=== PATIENT | male | born 1950 | race Caucasian/White ===

== ENCOUNTER 2017-12-05 10:26 | Emergency (ER) | payer MEDICARE, OTHER ==
[~2017-12-05] VITALS: Ht 177.8 cm; Wt 99.3 kg
[~2017-12-05 10:26] MED LIST: ACET500 PO; ALPR.5 PO; ASPI325EC PO; CYCL10 PO; DULO60 PO; ESCI10 PO; GABA300 PO; HYDACE5325 PO; LEVSOD125; LEVSOD50 PO; LOSA25 PO; MELO7.5 PO; MUPI1NAS; NAPR500 PO; OXYC10TA19; Percocet 5-3251 EACH PO; TRAM50 PO
[2017-12-05] MEDS ORDERED: Prednisone20 MG PO (11:25)
[2017-12-05] MEDS ORDERED: Norco 10-325 T1 EACH PO (11:25)
== END 2017-12-05 11:34 | disposition home or self-care (01) ==
LOC: ER 10:26
DX: S16.1XXA Strain of muscle, fascia and tendon at neck level, initial encounter (principal); M54.12 Radiculopathy, cervical region; I10 Essential (primary) hypertension; Z88.5 Allergy status to narcotic agent; Z79.899 Other long term (current) drug therapy; X50.9XXA Other and unspecified overexertion or strenuous movements or postures, initial encounter
CPT/HCPCS: 99283

== ENCOUNTER → 2018-12-25 | Outpatient (CLI) | payer MEDICARE, OTHER ==
[~2018-12-25] MED LIST changes: +Norco 10-325 T1 EACH PO; +Prednisone20 MG PO
== END | disposition home or self-care (01) ==
LOC: LAB EV 13:53 → LAB SHORT 13:53
DX: J02.9 Acute pharyngitis, unspecified (principal)
CPT/HCPCS: 87070

== ENCOUNTER 2019-03-30 11:18 | Day surgery (SDC) | payer MEDICARE, OTHER ==
[~2019-03-30] VITALS: Ht 175.3 cm; Wt 104.1 kg
[~2019-03-30 11:18] MED LIST changes: +Buspirone HCl7.5 MG PO; +ESCI20 PO; +LEVSOD25 PO; +LOSARTAN-HCTZ1 EACH PO; +TYLECOD3 PO
--- NOTE | 2019-03-30 12:40 | NUR ---
INTO [facility] ADMISSION STARTED. Ambulatory in Day Surgery. History, Chart, Medications and Allergies reviewed before start of procedure.Lungs clear T/O to Auscultation. Patient confirms NPO status and agrees with scheduled surgery.
--- NOTE | 2019-03-30 13:35 | NUR ---
UP TO BATHROOM TO VOID.
--- NOTE | 2019-03-30 18:05 | NUR ---
PT HERE FROM HAVING PROCEDURE. PT A/O. PT YOCHA DEHE. PT REPORTS PAIN TOLERABLE. PT DENIES N/V, N/T, SOB. PPX4. WIGGLES TOES. TEDS, PAS, AND ICE IN PLACE. FAMILY IN ROOM. VSS.
[2019-03-30] MEDS ORDERED: GABA300 PO (18:38)
[2019-03-31 04:27] LABS: BASOPHILS ABSOLUTE AUTO 0.02 K/mm3 (0.00-0.23); BASOPHILS PERCENT AUTO 0 % (0-2); EOSINOPHILS PERCENT AUTO 0 % (0-6); Hematocrit 39.3 % (37.0-53.0); Hemoglobin 13.4 g/dL (13.5-17.5); IMMATURE GRAN ABSOLUTE AUTO 0.12 K/mm3 (0.00-0.10); IMMATURE GRAN PERCENT AUTO 1 % (0-1); LYMPHOCYTES ABSOLUTE AUTO 0.66 K/mm3 (0.84-5.20); LYMPHOCYTES PERCENT AUTO 5 % (21-46); MONOCYTES ABSOLUTE AUTO 0.55 K/mm3 (0.16-1.47); MONOCYTES PERCENT AUTO 4 % (4-13); Mean Corpuscular HGB 30.5 pg (26.0-34.0); Mean Corpuscular HGB Conc 34.1 g/dL (31.5-36.5); Mean Corpuscular Volume 90 fL (80-100); Mean Platelet Volume 9.5 fL (9.1-12.4); NEUTROPHILS ABSOLUTE AUTO 12.17 K/mm3 (1.96-9.15); NEUTROPHILS PERCENT AUTO 90 % (41-73); Platelet Count 217 K/mm3 (150-400); RDW Coefficient Variation 13.1 % (11.7-14.2); Red Blood Cell Count 4.39 M/mm3 (4.30-5.90); White Blood Cell Count 13.52 K/mm3 (4.00-11.30)
[2019-03-31 04:47] LABS: Anion Gap 11 mmol/L (6-16); Blood Urea Nitrogen 21 mg/dL (8-24); Bun/Creatinine Ratio 20.8 (12.0-20.0); CO2, Blood 24 mmol/L (21-32); Calcium, Blood 8.3 mg/dL (8.5-10.1); Chloride, Blood 102 mmol/L (98-108); Creatinine, Blood 1.01 mg/dL (0.60-1.20); Glomerular Filtration Rate >60 (60-); Glucose, Blood 138 mg/dL (70-99); Potassium, Blood 3.9 mmol/L (3.5-5.5); Sodium, Blood 137 mmol/L (136-145)
--- NOTE | 2019-03-31 05:19 | NUR ---
SHIFT SUMMARY: PT POD#1 FOR L KNEE REVISION. A&O X4. VS WNL. ISAEL WRAP CDI WITH ICE PACK IN PLACE. PAIN MANAGED WITH 2 OXY PER EMAR AND SCHED TYLENOL + TORADOL. PT OUT OF BED WITH SBA AND FWW. VOIDING IN URINAL. ADEQUATE URINE OUTPUT. SALINE LOCKED EXCEPT FOR IV ABX. PT RYAN REG DIET. DENIES N/V.
[2019-03-31] MEDS ORDERED: Percocet 5-3251 EACH PO (08:48)
[2019-03-31] MEDS ORDERED: Aspirin EC81 MG PO (08:49)
--- NOTE | 2019-03-31 10:05 | NUR ---
D/C INSTRUCTIONS PROVIDED, PT STATES UNDERSTANDING. D/C RX & 2 EXTRA AQUACEL DRSG'S GIVEN TO THE PT AT THIS TIME.
== END 2019-03-31 17:30 | disposition home or self-care (01) ==
LOC: ORSCMMR 11:18 → PRE IP 12:45 → EDSTATUS 12:45 → SURS 18:05 → ORSCMMR 03-31 17:30
PROVIDERS: Orthopaedic Surgery
PROC: 0SRU0J9 Replacement of Left Knee Joint, Femoral Surface with Synthetic Substitute, Cemented, Open Approach (ICD-10-PCS; principal; 2019-03-30 12:45)
PROC: 0SPU0JZ Removal of Synthetic Substitute from Left Knee Joint, Femoral Surface, Open Approach (ICD-10-PCS; principal; 2019-03-30 12:45)
DX: T84.84XA Pain due to internal orthopedic prosthetic devices, implants and grafts, initial encounter (principal); Z96.659 Presence of unspecified artificial knee joint; Z01.818 Encounter for other preprocedural examination; V80.010A Animal-rider injured by fall from or being thrown from horse in noncollision accident, initial encounter; I10 Essential (primary) hypertension; G47.33 Obstructive sleep apnea (adult) (pediatric); E03.9 Hypothyroidism, unspecified; Z79.899 Other long term (current) drug therapy
CPT/HCPCS: 36415; 73560-LT; 80048; 85025; 86850; 86900; 86901; 97110; 97161; 97530; C1713; C1776; J0171; J0690; J0735; J1100; J1885; J2250; J2405; J2704; J2795; J3010; J7120; Q0163

== ENCOUNTER 2023-03-25 11:29 | Day surgery (SDC) | payer MEDICARE ==
[~2023-03-25] VITALS: Ht 177.8 cm; Wt 103.4 kg
[~2023-03-25 11:29] MED LIST changes: +Aspirin EC81 MG PO
[2023-03-25] MEDS ORDERED: DESV50 (11:58)
[2023-03-25] MEDS ORDERED: Cyclobenzaprine5 MG (11:58)
[2023-03-25] MEDS ORDERED: TAMS.4ER (11:59)
[2023-03-25] MEDS ORDERED: ZOCOR20 MG (11:59)
[2023-03-25] MEDS ORDERED: AMLO5 (12:00)
[2023-03-25 14:32] VITALS: BP 169/55
== END 2023-03-25 14:20 | disposition home or self-care (01) ==
LOC: ORSCSDS 11:29
PROVIDERS: Surgery
PROC: 0DJD8ZZ Inspection of Lower Intestinal Tract, Via Natural or Artificial Opening Endoscopic (ICD-10-PCS; principal; 2023-03-25 13:00)
DX: Z12.11 Encounter for screening for malignant neoplasm of colon (principal); R19.5 Other fecal abnormalities; K57.30 Diverticulosis of large intestine without perforation or abscess without bleeding; I10 Essential (primary) hypertension; E11.9 Type 2 diabetes mellitus without complications; E03.9 Hypothyroidism, unspecified; E78.5 Hyperlipidemia, unspecified; Z79.899 Other long term (current) drug therapy; Z79.84 Long term (current) use of oral hypoglycemic drugs
CPT/HCPCS: J2704; J7120

== ENCOUNTER 2023-04-13 17:26 | Inpatient (IN) | payer MEDICARE ==
[~2023-04-13] VITALS: Ht 177.8 cm; Wt 99.8 kg
[~2023-04-13 17:26] MED LIST changes: +AMLO5; +Cyclobenzaprine5 MG; +DESV50; +TAMS.4ER; +ZOCOR20 MG
[2023-04-13 18:10] LABS: BASOPHILS ABSOLUTE AUTO 0.11 K/mm3 (0.00-0.23); BASOPHILS PERCENT AUTO 1 % (0-2); EOSINOPHILS ABSOLUTE AUTO 0.06 K/mm3 (0.00-0.68); EOSINOPHILS PERCENT AUTO 0 % (0-6); Hematocrit 40.7 % (37.0-53.0); Hemoglobin 14.4 g/dL (13.5-17.5); IMMATURE GRAN ABSOLUTE AUTO 0.06 K/mm3 (0.00-0.10); IMMATURE GRAN PERCENT AUTO 0 % (0-1); LYMPHOCYTES ABSOLUTE AUTO 1.12 K/mm3 (0.84-5.20); LYMPHOCYTES PERCENT AUTO 8 % (21-46); MONOCYTES ABSOLUTE AUTO 0.91 K/mm3 (0.16-1.47); MONOCYTES PERCENT AUTO 7 % (4-13); Mean Corpuscular HGB 31.8 pg (26.0-34.0); Mean Corpuscular HGB Conc 35.4 g/dL (31.5-36.5); Mean Corpuscular Volume 90 fL (80-100); Mean Platelet Volume 9.4 fL (9.1-12.4); NEUTROPHILS ABSOLUTE AUTO 11.25 K/mm3 (1.96-9.15); NEUTROPHILS PERCENT AUTO 83 % (41-73); Platelet Count 273 K/mm3 (150-400); RDW Standard Deviation 42.7 fL (35.1-46.3); Red Blood Cell Count 4.53 M/mm3 (4.30-5.90); White Blood Cell Count 13.51 K/mm3 (4.00-11.30)
[2023-04-13 18:25] LABS: D-Dimer, Quantitative 0.63 mg/L FEU (0.00-0.52); International Normalized Ratio 1.01; Prothrombin Time Results 10.6 Sec (9.7-11.5)
[2023-04-13 18:29] LABS: Albumin, Blood 3.7 g/dL (3.4-5.0); Albumin/Globulin Ratio 1.1 (0.8-1.8); Bilirubin, Total 0.6 mg/dL (0.1-1.0); Bun/Creatinine Ratio 24.6 (12.0-20.0); Creatinine, Blood 0.89 mg/dL (0.60-1.20); Globulin, Blood 3.3 g/dL (2.2-4.0); Magnesium, Blood 1.9 mg/dL (1.6-2.4); Phosphorus, Blood 1.4 mg/dL (2.5-4.9); Potassium, Blood 3.7 mmol/L (3.5-5.5)
[2023-04-14] VITALS (24 sets, daily range): BP systolic 103–153; BP diastolic 50–97
[2023-04-14 04:17] LABS: BASOPHILS ABSOLUTE AUTO 0.04 K/mm3 (0.00-0.23); BASOPHILS PERCENT AUTO 0 % (0-2); EOSINOPHILS ABSOLUTE AUTO 0.01 K/mm3 (0.00-0.68); EOSINOPHILS PERCENT AUTO 0 % (0-6); Hematocrit 43.3 % (37.0-53.0); Hemoglobin 15.3 g/dL (13.5-17.5); IMMATURE GRAN ABSOLUTE AUTO 0.06 K/mm3 (0.00-0.10); IMMATURE GRAN PERCENT AUTO 0 % (0-1); LYMPHOCYTES PERCENT AUTO 4 % (21-46); MONOCYTES PERCENT AUTO 6 % (4-13); Mean Corpuscular HGB 32.1 pg (26.0-34.0); Mean Corpuscular HGB Conc 35.3 g/dL (31.5-36.5); Mean Corpuscular Volume 91 fL (80-100); Mean Platelet Volume 9.7 fL (9.1-12.4); NEUTROPHILS ABSOLUTE AUTO 12.71 K/mm3 (1.96-9.15); NEUTROPHILS PERCENT AUTO 90 % (41-73); Platelet Count 257 K/mm3 (150-400); RDW Coefficient Variation 13.1 % (11.7-14.2); RDW Standard Deviation 43.8 fL (35.1-46.3); Red Blood Cell Count 4.76 M/mm3 (4.30-5.90); White Blood Cell Count 14.12 K/mm3 (4.00-11.30)
[2023-04-14 05:02] LABS: Albumin, Blood 3.6 g/dL (3.4-5.0); Bilirubin, Total 0.6 mg/dL (0.1-1.0); Calcium, Blood 9.1 mg/dL (8.5-10.1); Creatinine, Blood 0.9 mg/dL (0.60-1.20); Globulin, Blood 3.7 g/dL (2.2-4.0); Potassium, Blood 3.6 mmol/L (3.5-5.5); Total Protein, Blood 7.3 g/dL (6.4-8.2)
--- NOTE | 2023-04-14 05:40 | NUR ---
PT ARRIVED TO [facility] @ 0315. ORIENTED X4, DENIES CP OR PRESSURE AT THIS TIME. VSS PER PT TREND, SLIGHTLY HYPERTENSIVE IN THE 150S SYSTOLIC. SOA W EXERTION. PT STATES CHEST PAIN STARTED WHEN HE WAS VOMITING PERFUSELY AND FELT SICK TO HIS STOMACH. STATES HE HAS HAD RECENT SICK FAMILY MEMBERS WITH A "STOMACH BUG". NOTIFIED DR. VALENTINE AND ORDER FOR RVP AND GI PANEL RECEIVED. AT BESIDE. ALL UPDATED ON PLAN OF CARE, FALL PRECAUTIONS AND ORIENTED TO UNIT. WILL PASS ON TO DAY RN
--- NOTE | 2023-04-14 14:18 | NUR ---
PATINET INTO SDS FROM PCU, CHANGED TO SURGICCAL FLOOR STATUS. History, Chart, Medications and Allergies reviewed before start of procedure.Patient confirms NPO status and agrees with scheduled surgery. Surgical site prepped with 2% Chlorhexidine cloth wipe.
--- NOTE | 2023-04-14 17:41 | NUR ---
3 ATTEMPTED IV SITES, TRINA RN R ARM X2 AND Savannah SORIANO RN X1.
--- NOTE | 2023-04-14 18:04 | NUR ---
PATIENT ARRIVED FROM PACU TODAY AT 1745. POD 0 LAP ANNMARIE PATIENT IS A&OX4 BUT IS SLIGHTLY QUINAULT. VS ARE WNL AND IS ON RA. PATIENT DENIES PAIN AT THIS TIME. ON HIS ABD HE HAS X3 LAP SITES WITH STERI STRIPS THAT ARE C/D/I. HIS ABD HAS A TAMAR DRAIN ON THE RLQ OF ABD WITH BULB COMPRESSED. ABD IS TENDER TO TOUCH. HE IS TOLERATING SMALL AMOUNTS OF CLEAR LIQUIDS AT THIS TIME. HE IS LAYING IN BED WITH CALL LIGHT IN REACH. IS AT BEDSIDE.
[2023-04-15 04:24] LABS: BASOPHILS ABSOLUTE AUTO 0.02 K/mm3 (0.00-0.23); BASOPHILS PERCENT AUTO 0 % (0-2); EOSINOPHILS PERCENT AUTO 0 % (0-6); Hematocrit 39.9 % (37.0-53.0); Hemoglobin 13.9 g/dL (13.5-17.5); IMMATURE GRAN ABSOLUTE AUTO 0.14 K/mm3 (0.00-0.10); IMMATURE GRAN PERCENT AUTO 1 % (0-1); LYMPHOCYTES ABSOLUTE AUTO 0.52 K/mm3 (0.84-5.20); LYMPHOCYTES PERCENT AUTO 3 % (21-46); MONOCYTES ABSOLUTE AUTO 1.03 K/mm3 (0.16-1.47); MONOCYTES PERCENT AUTO 5 % (4-13); Mean Corpuscular HGB Conc 34.8 g/dL (31.5-36.5); Mean Corpuscular Volume 92 fL (80-100); Mean Platelet Volume 9.4 fL (9.1-12.4); NEUTROPHILS ABSOLUTE AUTO 17.73 K/mm3 (1.96-9.15); NEUTROPHILS PERCENT AUTO 91 % (41-73); Platelet Count 240 K/mm3 (150-400); RDW Coefficient Variation 13.2 % (11.7-14.2); Red Blood Cell Count 4.34 M/mm3 (4.30-5.90); White Blood Cell Count 19.44 K/mm3 (4.00-11.30)
[2023-04-15 04:46] LABS: Albumin/Globulin Ratio 0.8 (0.8-1.8); Bilirubin, Total 0.6 mg/dL (0.1-1.0); Bun/Creatinine Ratio 19.3 (12.0-20.0); Calcium, Blood 8.9 mg/dL (8.5-10.1); Creatinine, Blood 0.98 mg/dL (0.60-1.20); Potassium, Blood 4.2 mmol/L (3.5-5.5)
[2023-04-15 04:54] VITALS: BP 155/65
--- NOTE | 2023-04-15 07:26 | NUR ---
SUMMARY PT DENIED NEED FOR PAIN MEDS THIS SHIFT. VODIING AND TOLERATING PO FLUIDS.
[2023-04-15 07:51] VITALS: BP 120/56
--- NOTE | 2023-04-15 11:06 | NUR ---
DR PORTILLO IN TO SEE PT.
[2023-04-15] MEDS ORDERED: BENADRYL25 MG PO (12:13)
[2023-04-15] MEDS ORDERED: OXYC5 PO (12:14)
--- NOTE | 2023-04-15 15:02 | NUR ---
DISCHARGE EATING, DRINKING, VOIDING WELL. PASSING GAS. PAIN WELL CONTROLLED. PLEASANT & EXCITED FOR DC. SCRIPT SENT & ESCORTED OUT VIA WC.
== END 2023-04-15 15:01 | disposition home or self-care (01) | DRG 418 ==
LOC: ER 17:26 → ERHOLD 17:27 → PCU 17:27 → SURS 04-14 15:18
PROVIDERS: Emergency Medicine; Family Medicine; Surgery; ADMIT Internal Medicine
PROC: 0FT44ZZ Resection of Gallbladder, Percutaneous Endoscopic Approach (ICD-10-PCS; principal; 2023-04-14 14:30)
DX: K80.00 Calculus of gallbladder with acute cholecystitis without obstruction (principal); I25.110 Atherosclerotic heart disease of native coronary artery with unstable angina pectoris; F41.9 Anxiety disorder, unspecified; M19.90 Unspecified osteoarthritis, unspecified site; K82.A1 Gangrene of gallbladder in cholecystitis; N40.0 Benign prostatic hyperplasia without lower urinary tract symptoms; E11.9 Type 2 diabetes mellitus without complications; E78.5 Hyperlipidemia, unspecified; F32.A Depression, unspecified; I10 Essential (primary) hypertension; E03.9 Hypothyroidism, unspecified; E66.9 Obesity, unspecified; Z68.31 Body mass index [BMI] 31.0-31.9, adult; F10.90 Alcohol use, unspecified, uncomplicated; F43.10 Post-traumatic stress disorder, unspecified; E55.9 Vitamin D deficiency, unspecified; Z96.659 Presence of unspecified artificial knee joint; Z98.1 Arthrodesis status; Z90.89 Acquired absence of other organs; Z87.891 Personal history of nicotine dependence; Z86.19 Personal history of other infectious and parasitic diseases; Z79.82 Long term (current) use of aspirin; Z79.890 Hormone replacement therapy; Z88.5 Allergy status to narcotic agent; Z88.8 Allergy status to other drugs, medicaments and biological substances
CPT/HCPCS: 36415; 71045; 71260; 76705; 80053; 83690; 83735; 83880; 84100; 84484; 85025; 85379; 85610; 85730; 88304; 93005; 93010; 96374-59; 96375; 96375-59; 96376; 96376-59; 99285-25; A9270; G0378; J0690; J1100; J1170; J1650; J2270; J2371; J2405; J2704; J2765; J3010; J7120; Q9967

== ENCOUNTER 2023-05-10 11:10 | Emergency (ER) | payer MEDICARE ==
[~2023-05-10] VITALS: Ht 177.8 cm; Wt 99.8 kg
[~2023-05-10 11:10] MED LIST changes: +BENADRYL25 MG PO; +OXYC5 PO
[2023-05-10 12:05] LABS: BASOPHILS ABSOLUTE AUTO 0.08 K/mm3 (0.00-0.23); BASOPHILS PERCENT AUTO 1 % (0-2); EOSINOPHILS ABSOLUTE AUTO 0.54 K/mm3 (0.00-0.68); EOSINOPHILS PERCENT AUTO 7 % (0-6); Hematocrit 42.5 % (37.0-53.0); Hemoglobin 14.7 g/dL (13.5-17.5); IMMATURE GRAN ABSOLUTE AUTO 0.03 K/mm3 (0.00-0.10); IMMATURE GRAN PERCENT AUTO 0 % (0-1); LYMPHOCYTES ABSOLUTE AUTO 1.06 K/mm3 (0.84-5.20); LYMPHOCYTES PERCENT AUTO 15 % (21-46); MONOCYTES ABSOLUTE AUTO 0.82 K/mm3 (0.16-1.47); MONOCYTES PERCENT AUTO 11 % (4-13); Mean Corpuscular HGB 31.7 pg (26.0-34.0); Mean Corpuscular HGB Conc 34.6 g/dL (31.5-36.5); Mean Corpuscular Volume 92 fL (80-100); Mean Platelet Volume 9.6 fL (9.1-12.4); NEUTROPHILS ABSOLUTE AUTO 4.73 K/mm3 (1.96-9.15); NEUTROPHILS PERCENT AUTO 65 % (41-73); Platelet Count 250 K/mm3 (150-400); RDW Standard Deviation 43.5 fL (35.1-46.3); Red Blood Cell Count 4.64 M/mm3 (4.30-5.90); White Blood Cell Count 7.26 K/mm3 (4.00-11.30)
[2023-05-10 12:20] LABS: Albumin, Blood 3.7 g/dL (3.4-5.0); Bilirubin, Total 0.4 mg/dL (0.1-1.0); Bun/Creatinine Ratio 19.3 (12.0-20.0); Calcium, Blood 9.2 mg/dL (8.5-10.1); Creatinine, Blood 1.14 mg/dL (0.60-1.20); Globulin, Blood 3.6 g/dL (2.2-4.0); Potassium, Blood 4.2 mmol/L (3.5-5.5); Total Protein, Blood 7.3 g/dL (6.4-8.2)
[2023-05-10] MEDS ORDERED: PROBIOTIC1 EA14 PO (15:56)
[2023-05-10] MEDS ORDERED: IBUP800 PO (15:56)
[2023-05-10] MEDS ORDERED: Pepcid20 MG PO (15:56)
[2023-05-10] MEDS ORDERED: ONDA4ODT MM (15:56)
[2023-05-10 16:04] VITALS: BP 135/54
== END 2023-05-10 16:07 | disposition home or self-care (01) ==
LOC: ER 11:10
PROVIDERS: Physician Assistant
DX: G89.18 Other acute postprocedural pain (principal); I10 Essential (primary) hypertension; Z79.899 Other long term (current) drug therapy; Z79.82 Long term (current) use of aspirin
CPT/HCPCS: 80053; 83690; 85025; 96374; 99284-25; J1885

== ENCOUNTER 2025-03-14 17:23 | Observation (INO) | payer OTHER ==
[~2025-03-14] VITALS: Ht 172.7 cm; Wt 114.0 kg
[~2025-03-14 17:23] MED LIST changes: -AMLO5; +AMLO5 PO; -Cyclobenzaprine5 MG; +Cyclobenzaprine5 MG PO; +IBUP800 PO; +ONDA4ODT MM; +PROBIOTIC1 EA14 PO; +Pepcid20 MG PO; -TAMS.4ER; +TAMS.4ER PO; -ZOCOR20 MG; +ZOCOR20 MG PO
[2025-03-14 18:11] LABS: BASOPHILS ABSOLUTE AUTO 0.07 K/mm3 (0.00-0.23); BASOPHILS PERCENT AUTO 1 % (0-2); EOSINOPHILS ABSOLUTE AUTO 0.41 K/mm3 (0.00-0.68); EOSINOPHILS PERCENT AUTO 7 % (0-6); Hematocrit 40.8 % (37.0-53.0); Hemoglobin 14.2 g/dL (13.5-17.5); IMMATURE GRAN ABSOLUTE AUTO 0.03 K/mm3 (0.00-0.10); IMMATURE GRAN PERCENT AUTO 1 % (0-1); LYMPHOCYTES ABSOLUTE AUTO 0.98 K/mm3 (0.84-5.20); LYMPHOCYTES PERCENT AUTO 16 % (21-46); MONOCYTES ABSOLUTE AUTO 0.53 K/mm3 (0.16-1.47); MONOCYTES PERCENT AUTO 9 % (4-13); Mean Corpuscular HGB Conc 34.8 g/dL (31.5-36.5); Mean Corpuscular Volume 90 fL (80-100); NEUTROPHILS ABSOLUTE AUTO 4.09 K/mm3 (1.96-9.15); NEUTROPHILS PERCENT AUTO 67 % (41-73); NRBC ABSOLUTE 0.00 K/mm3 (0.00-0.02); NRBC Auto 0.0 /100 WBC (0.0-0.2); Platelet Count 271 K/mm3 (150-400); RDW Coefficient Variation 13.6 % (11.7-14.2); RDW Standard Deviation 45.3 fL (35.1-46.3)
[2025-03-14 18:23] LABS: Alanine Aminotransfer (ALT/SGP 27.0 U/L (12-78); Albumin, Blood 3.4 g/dL (3.4-5.0); Albumin/Globulin Ratio 0.9 (0.8-1.8); Anion Gap 6.0 mmol/L (3-11); Aspartate Aminotrans (AST/SGOT 26.0 U/L (12-37); Bilirubin, Total 0.4 mg/dL (0.1-1.0); Blood Urea Nitrogen 15.0 mg/dL (8-24); CO2, Blood 25.0 mmol/L (21-32); Calcium, Blood 9.3 mg/dL (8.5-10.1); Chloride, Blood 108.0 mmol/L (98-108); Creatinine, Blood 0.95 mg/dL (0.60-1.20); Globulin, Blood 3.8 g/dL (2.2-4.0); Glucose, Blood 118.0 mg/dL (70-99); Potassium, Blood 3.4 mmol/L (3.5-5.5); Sodium, Blood 136.0 mmol/L (136-145); Total Protein, Blood 7.2 g/dL (6.4-8.2)
[2025-03-14] MEDS ORDERED: Ondansetron HCl 2 MG / ML 2ML Vial IV ONE (18:30)
[2025-03-14] MEDS ORDERED: Morphine Sulfate 4 MG/1 ML Injection IV ONE (18:30)
[2025-03-14] MEDS ORDERED: Ondansetron HCl 2 MG / ML 2ML Vial IV PRN (19:45)
[2025-03-14] MEDS ORDERED: NS 1,000 ML IV SCH (19:45)
[2025-03-14] MEDS ORDERED: NS 1,000 ML IV ONE (20:36)
[2025-03-14 21:48] VITALS: BP 127/70
[2025-03-14] MEDS ORDERED: EUTHYROX25 MC1 PO (21:54)
[2025-03-14] MEDS ORDERED: NITROGLYCERIN0.4 M3 SL (21:56)
[2025-03-14] MEDS ORDERED: ISOSORBIDE MONO30 MG PO (21:56)
[2025-03-14] MEDS ORDERED: BUSPIRONE HCL10 M6 PO (21:57)
[2025-03-14] MEDS ORDERED: DESVENLAFAXINE50 M3 PO (21:59)
[2025-03-14] MEDS ORDERED: DESV50 PO (22:01)
[2025-03-14] MEDS ORDERED: Morphine Sulfate 4 MG/1 ML Injection IV PRN (22:35)
[2025-03-14 22:55] VITALS: BP 132/43
[2025-03-14] MEDS ORDERED: LOSA50 PO (23:14)
--- NOTE | 2025-03-14 23:33 | NUR ---
ARRIVAL TO PCU NOTE RECEIVED REPORT FROM DOCTOR OF AUDIOLOGY IVAN, PT SHORTLY ARRIVED TO PCU 15 AT 2140. TRANSFERRED FROM ER [facility] TO PCU BED VIA SBA. A/Ox4 AND COOPERATIVE WITH CARE. ANSWERS QUESTIONS APPROPRIATELY AND ABLE TO MAKE HIS NEEDS KNOWN. DENIES ANY UNILATERAL WEAKNESS OR N/T. TELE SHOWS SB 50'S WITH PT REPORTING MILD 4/10 CENTRAL CHEST PAIN WITHOUT RADIATTION. SBP STABLE AT THIS TIME. RESPIRATORY, MAINTAINS SPO2 >94% ON RA, ENDORSES SOME SOB WITH EXERTION. GI/, DENIES ANY ABD TENDERNESS WITH BS NOTED IN ALL QUADRANTS. DENIES ANY ISSUES VOIDING. SKIN C/D/I, WITH TRACE EDEMA NOTED IN BLE. 1xPIV IN LAC FLUSHES WELL. NS STARTED IN ER AND RESUMED ORDERED PER EMAR. DR. WANG NOTIFIED OF PT'S CP, ORDERS TO FOLLOW. SEE EMAR FOR DETAILS. BED IN LOWEST POSITION CALL LIGHT WITHIN REACH
[2025-03-14] MEDS ORDERED: ALBU90OI INH (23:44)
[2025-03-15] VITALS (7 sets, daily range): BP systolic 140–183; BP diastolic 54–94
[2025-03-15 05:27] LABS: BASOPHILS ABSOLUTE AUTO 0.09 K/mm3 (0.00-0.23); BASOPHILS PERCENT AUTO 2 % (0-2); EOSINOPHILS ABSOLUTE AUTO 0.50 K/mm3 (0.00-0.68); EOSINOPHILS PERCENT AUTO 8 % (0-6); Hematocrit 39.8 % (37.0-53.0); Hemoglobin 13.7 g/dL (13.5-17.5); IMMATURE GRAN ABSOLUTE AUTO 0.03 K/mm3 (0.00-0.10); IMMATURE GRAN PERCENT AUTO 1 % (0-1); LYMPHOCYTES ABSOLUTE AUTO 1.31 K/mm3 (0.84-5.20); LYMPHOCYTES PERCENT AUTO 22 % (21-46); MONOCYTES ABSOLUTE AUTO 0.77 K/mm3 (0.16-1.47); MONOCYTES PERCENT AUTO 13 % (4-13); Mean Corpuscular HGB Conc 34.4 g/dL (31.5-36.5); Mean Corpuscular Volume 93 fL (80-100); NEUTROPHILS ABSOLUTE AUTO 3.33 K/mm3 (1.96-9.15); NEUTROPHILS PERCENT AUTO 55 % (41-73); NRBC ABSOLUTE 0.00 K/mm3 (0.00-0.02); NRBC Auto 0.0 /100 WBC (0.0-0.2); Platelet Count 230 K/mm3 (150-400); RDW Coefficient Variation 14.0 % (11.7-14.2); RDW Standard Deviation 46.8 fL (35.1-46.3)
--- NOTE | 2025-03-15 05:55 | NUR ---
SHIFT SUMMARY NO ACUTE CHANGED SINCE ARRIVAL TO PCU NOTE. SEE NOTE FOR DETAILS, CONTINUES TO HAVE INTERMITTENT CP DURING THE NIGHT. MANAGED WELL WITH PRN MORPHINE. NS CONTINUES TO INFUSE ORDERED PER EMAR. NO NEW ORDERS AT THIS TIME, WILL PROJECT MANAGEMENT INSTRUCTOR REPORT TO DAYSMAFT RN. MARK KEARNEY OF THIS NOTE.
[2025-03-15 06:36] LABS: Alanine Aminotransfer (ALT/SGP 21.0 U/L (12-78); Albumin, Blood 2.8 g/dL (3.4-5.0); Albumin/Globulin Ratio 0.8 (0.8-1.8); Anion Gap 10.0 mmol/L (3-11); Aspartate Aminotrans (AST/SGOT 24.0 U/L (12-37); Bilirubin, Total 0.6 mg/dL (0.1-1.0); Blood Urea Nitrogen 14.0 mg/dL (8-24); CO2, Blood 23.0 mmol/L (21-32); Calcium, Blood 8.2 mg/dL (8.5-10.1); Chloride, Blood 111.0 mmol/L (98-108); Creatinine, Blood 0.91 mg/dL (0.60-1.20); Globulin, Blood 3.7 g/dL (2.2-4.0); Glucose, Blood 85.0 mg/dL (70-99); Magnesium, Blood 2.0 mg/dL (1.6-2.4); Potassium, Blood 3.8 mmol/L (3.5-5.5); Sodium, Blood 140.0 mmol/L (136-145); Total Protein, Blood 6.5 g/dL (6.4-8.2)
[2025-03-15] MEDS ORDERED: Verapamil HCL 2.5 MG/ML 2ML Injection ONE (09:42)
[2025-03-15] MEDS ORDERED: Heparin Sodium 1000 Units/ML 10ML MDV ONE (09:42)
[2025-03-15] MEDS ORDERED: NS 1,000 ML IV ONE ×2 (09:43→09:52)
[2025-03-15] MEDS ORDERED: NS 250 ML IV ONE (09:43)
[2025-03-15] MEDS ORDERED: Midazolam HCl 1MG / ML 2ML Vial ONE (10:14)
[2025-03-15] MEDS ORDERED: FentaNYL Citrate 50 MCG/ML 2 ML Injection ONE (10:14)
[2025-03-15] MEDS ORDERED: HydrALAZINE HCl 20 MG / ML 1ML Vial IV PRN (18:00)
--- NOTE | 2025-03-15 19:29 | NUR ---
SHIFT SUMMARY PATIENT AOX4 ABLE TO MAKE NEEDS KNOWN. DOES HAVE SOME CHEST PAIN. DENIES SOB. HE IS INDEPENDENT TO THE RESTROOM AND TOLERATING HIS MEALS. HIS TR BAND WAS REMOVED AND WITH NO ISSUES, NO HEMATOMA, NO PAIN. HIS BLOOD PRESSURE WAS ELEVATED HOSPITALIST AWARE.
--- NOTE | 2025-03-15 20:17 | NUR ---
ASSUMPTION OF CARE: ASSUMED CARE AT START OF SHIFT (1899). PT IS DOING WELL AND RESTING IN BED, THEY ARE A&OX4 AND FOLLOWIN COMMANDS. PT DENIES ANY PAIN, CP, OR SOB AT THIS TIME. LUNG SOUNDS ARE CLEAR AND EQUA BILATEALLY, SPO2 >90% ON RA. SINUS RYTHM WITH SBP: 140-150'S MAP >65 HR: 50-60'S. TR BAND REMOVED THIS AFTERNOON @16:45, SITE LOOKS GOOD NO BLEEDING, SWELLING, TENDERNES NOTED AND ARM-BOARD STILL IN PLACE TO LIMIT RNGE OF MOTION IN R ARM. IV: PERIPHEAL IN LAC. PT ABLE TO AMBULATE WITH STANDY ASSIST. LINES AND CORDS PLACED OUT OF REACH. CALL LIGHT PLACED WITHIN REACH.
[2025-03-16 00:05] VITALS: BP 152/59
[2025-03-16 03:41] VITALS: BP 166/58
--- NOTE | 2025-03-16 06:06 | NUR ---
SHIFT SUMMARY: PT IS DOING WELL, THEY WERE ABLE TO SLEEP THROUGHOUT THE NIGHT. NO ACUTE CHANGES DURING THE SHIFT. VITAL SIGNS REMAINED STABLE. PUNCTURE SITE ON R WRIST LOOKS GOOD, NO TENDERNESS, SWELLING, OR BLEEDING NOTED. PT IS NICK TO AMBULATE TO BATHROM WITH MINIMAL ASSIST. CALL LIGHT PLACED WITHIN REACH.
[2025-03-16 07:23] VITALS: BP 152/47
--- NOTE | 2025-03-16 10:46 | NUR ---
AM SHIFT NOTE: PATIENT A/OX4, DENIES CP, BUT REPORTS "SLIGHT PRESSURE" TO MID STERNUM, ON TELE SB/SR HR IN THE HIGH 50'S TO LOW 60'S BPM. PATIENT RECEIVED SCHEDULED MEDS PER EMAR. VITAL SIGNS REVIEWED. PATIENT HAS HAD NO NEW CONCERN OR COMPLAINTS THIS SHIFT. CALL LIGHT IN REACH. REPORTS GIVEN TO FLORENCE TORRES.
[2025-03-16] MEDS ORDERED: Crestor40 MG PO (11:04)
--- NOTE | 2025-03-16 11:48 | NUR ---
DISCHARGE NOTE: PT AND PT FAMILY MEMBER STATE VERBAL UNDERSTANDING TO DISCHARGE INTRUCTIONS. PIV REMOVED BEFORE DISCHARGE. DISCHARGE INSTRUCTIONS PRINTED AND GIVEN TO PT. PT DENIES QUESTIONS OR CONCERNS AT TIME OF DISCHAGE.
== END 2025-03-16 11:45 | disposition home or self-care (01) ==
LOC: ER 17:23 → PCU 17:24
PROVIDERS: Student in an Organized Health Care Education/Training Program; ADMIT Student in an Organized Health Care Education/Training Program
DX: I25.85 Chronic coronary microvascular dysfunction (principal); I10 Essential (primary) hypertension; G47.33 Obstructive sleep apnea (adult) (pediatric); E78.5 Hyperlipidemia, unspecified; E03.9 Hypothyroidism, unspecified; N40.0 Benign prostatic hyperplasia without lower urinary tract symptoms; K21.9 Gastro-esophageal reflux disease without esophagitis; Z79.82 Long term (current) use of aspirin; Z79.890 Hormone replacement therapy; Z79.899 Other long term (current) drug therapy; Z90.49 Acquired absence of other specified parts of digestive tract
CPT/HCPCS: 36415; 71046; 76937; 80053; 83690; 83735; 84484; 85025; 93005; 93010; 93458; 94762; 96374; 96375; 96376; 99152; 99285-25; A9270; C1769; C1887; C1894; G0378; J1644; J2250; J2270; J2405; J3010; J7030; J7050; Q9967